=== PATIENT | female | born 1980 | race Caucasian/White ===

== ENCOUNTER → 2019-03-24 08:59 | Outpatient (CLI) | payer OTHER, SELFPAY | PROVIDERS: Family Provider Family Medicine; PCP Family Medicine; Visit Provider Physician Assistant | DX: J02.9 Acute pharyngitis, unspecified (principal) | CPT/HCPCS: 87070; 87077; 87147 ==

== ENCOUNTER → 2020-01-08 16:04 | Outpatient (CLI) | payer OTHER, SELFPAY ==
--- NOTE | 2020-01-08 | DI.MG.S_ITS ---
BILATERAL DIGITAL SCREENING MAMMOGRAM 3D/2D WITH CAD: 01/08/2020 CLINICAL: Routine screening. Baseline exam. Family history of breast cancer. No prior exams were available for comparison. The tissue of both breasts is extremely dense, which lowers the sensitivity of mammography. Current study was also evaluated with a Computer Aided Detection (CAD) system. No significant masses, calcifications, or other findings are seen in either breast. IMPRESSION: NEGATIVE There is no mammographic evidence of malignancy. A 1 year screening mammogram is recommended. This exam was interpreted at Station ID: [id number]. NOTE: For mammograms, a report in lay terms will be sent to the patient. Approximately 15% of breast malignancies will not be visualized mammographically. In the management of a palpable breast mass, a negative mammogram must not discourage biopsy of a clinically suspicious lesion. Electronically Signed By: Marina lucia/dena:01/08/2020 16:48:29 letter sent: Normal Exam ACR BI-RADS Category 1: Negative 3341F
== END ==
PROVIDERS: Family Provider Family Medicine; PCP Family Medicine; Referring Provider Registered Nurse; Visit Provider Registered Nurse
DX: Z12.31 Encounter for screening mammogram for malignant neoplasm of breast (principal); Z80.3 Family history of malignant neoplasm of breast
CPT/HCPCS: 77063; 77067

== ENCOUNTER → 2020-03-02 16:46 | Outpatient (CLI) | payer OTHER, SELFPAY ==
--- NOTE | 2020-03-02 16:54 | DI.RAD.S_ITS ---
PROCEDURE: XR SHOULDER RT MIN 2V INDICATIONS: NECK AND RIGHT SHOULDER PAIN TECHNIQUE: 3 views of the shoulder were acquired. COMPARISON: [facility], CR, XR CERVICAL SPINE 2V OR 3V, 03/02/2020, 16:48. FINDINGS: Bones: No fractures. No dislocations. The right acromioclavicular joint is widened and mildly displaced at 9 mm. No suspicious bony lesions. Visualized ribs appear intact. Soft tissues: No suspicious soft tissue calcifications. The visualized lung demonstrates an unremarkable appearance. IMPRESSION: Right acromioclavicular joint separation. If clinically appropriate, please consider a follow-up study performed of both shoulders, with and without weights. Dictated by: Maximo Maya M.D. on 03/02/2020 at 16:43 Approved by: Maximo Maya M.D. on 03/02/2020 at 16:44
--- NOTE | 2020-03-02 16:54 | DI.RAD.S_ITS ---
PROCEDURE: XR CERVICAL SPINE 2V OR 3V INDICATIONS: NECK AND RIGHT SHOULDER PAIN TECHNIQUE: 3 view(s) of the cervical spine were acquired. COMPARISON: [facility], CR, XR SHOULDER RT MIN 2V, 03/02/2020, 16:48. FINDINGS: Bones: No fractures or dislocations to the T1 level. The lateral masses of C1 appear intact on the odontoid view. No suspicious bony lesions. There is straightening of the normal cervical lordosis. The disc spaces are relatively well preserved. Soft tissues: No prevertebral soft tissue swelling. The visualized lung apices are unremarkable. IMPRESSION: Straightening of the normal cervical lordosis is seen, which is commonly observed in patients with muscular spasm. Dictated by: Maximo Maya M.D. on 03/02/2020 at 16:44 Approved by: Maximo Maya M.D. on 03/02/2020 at 16:45
== END ==
PROVIDERS: Family Provider Family Medicine; PCP Family Medicine
DX: M54.2 Cervicalgia (principal); M25.511 Pain in right shoulder; S43.101A Unspecified dislocation of right acromioclavicular joint, initial encounter; M99.07 Segmental and somatic dysfunction of upper extremity; M99.01 Segmental and somatic dysfunction of cervical region; M79.18 Myalgia, other site; S46.011A Strain of muscle(s) and tendon(s) of the rotator cuff of right shoulder, initial encounter
CPT/HCPCS: 72040; 73030

== ENCOUNTER → 2021-01-12 12:39 | Outpatient (CLI) | payer OTHER, SELFPAY ==
--- NOTE | 2021-01-12 12:42 | DI.MG.S_ITS ---
BILATERAL DIGITAL DIAGNOSTIC MAMMOGRAM 3D/2D: 01/12/2021 CLINICAL: Breast lump. Comparison is made to exam dated: 01/08/2020 [facility]. The tissue of both breasts is extremely dense, which lowers the sensitivity of mammography. There is a new 8 mm irregular low density asymmetry with a circumscribed margin in the right breast posterior depth lateral region seen on the exaggerated craniocaudal view only. This is seen in tomographic views. This correlates as palpated. No other significant masses, calcifications, or other findings are seen in either breast. IMPRESSION: INCOMPLETE: NEEDS ADDITIONAL IMAGING EVALUATION The new palpable 8 mm irregular low density asymmetry in the right breast most likely is a cyst or a lymph node and is indeterminate. An ultrasound is recommended. This was performed immediately following this exam. This exam was interpreted at Station ID: [id number]. NOTE: For mammograms, a report in lay terms will be sent to the patient. Approximately 15% of breast malignancies will not be visualized mammographically. In the management of a palpable breast mass, a negative mammogram must not discourage biopsy of a clinically suspicious lesion. Electronically Signed By: Amberly walker/:01/12/2021 13:35:17 ACR BI-RADS Category 0: Incomplete 3340F
--- NOTE | 2021-01-12 12:42 | DI.US.S_ITS ---
LIMITED ULTRASOUND OF RIGHT BREAST: 01/12/2021 CLINICAL: Palpable right breast lump. Comparison is made to exams dated: 01/12/2021 mammogram and 01/08/2020 mammogram - [facility]. Color flow and real-time ultrasound of the right breast 10 o'clock region were performed. Al scale images of the real-time examination were reviewed. There is a benign oval lymph node with a circumscribed margin in the right axillary tail. This oval lymph node displays fatty hilum and no posterior acoustic shadowing or enhancement. This correlates as palpated and with mammography findings. Color flow imaging demonstrates that there is expected hilar vascularity present. IMPRESSION: BENIGN There is no sonographic evidence of malignancy. The palpable finding is consistent with a normal intramammary lymph node and is benign. Return to annual mammogram screening schedule is recommended. Findings and recommendations were conveyed to the patient at time of exam. This exam was interpreted at Station ID: [id number]. Electronically Signed By: Amberly walker/:01/12/2021 13:54:11 letter sent: Normal Exam Ultrasound BI-RADS: 2 Benign
== END ==
PROVIDERS: Family Provider Family Medicine; PCP Physician Assistant Medical; Referring Provider Registered Nurse; Visit Provider Physician Assistant Medical
DX: R92.8 Other abnormal and inconclusive findings on diagnostic imaging of breast; N63.10 Unspecified lump in the right breast, unspecified quadrant
CPT/HCPCS: 76642; 77066; G0279

== ENCOUNTER → 2021-06-08 15:57 | Outpatient (CLI) | payer OTHER, SELFPAY ==
--- NOTE | 2021-06-08 15:59 | DI.MRI.S_ITS ---
PROCEDURE: MR BRAIN (PITUITARY) WWO CON INDICATIONS: Other disorders of pituitary gland TECHNIQUE: Noncontrast sagittal and axial FLAIR, axial gradient echo, axial diffusion and ADC through the brain. Thin-slice sagittal and coronal T1 spin echo, coronal T2 fast spin echo through the pituitary. After the administration contrast, optional dynamic coronal T1 spin echo, thin-slice coronal and sagittal T1 spin echo images through the pituitary fossa; axial T1 spin echo with fat saturation through the brain. In this patient, additional thin section postcontrast T1 weighted fat saturated images were obtained through the orbits as well as precontrast thin-section coronal T2 weighted images through the orbits. COMPARISON: [facility], MR, BRAIN W&WO CONTRAST, 01/23/2016, 16:34. [facility], CT, CT ENT SINUS WITHOUT CONTRAST, 05/08/2021, 9:51. FINDINGS: Image quality: Excellent. Pituitary Gland: Within the left inferior aspect of the pituitary, there is a faintly seen area of decreased enhancement that measures 6 x 4 x 5 mm, as on series 18, image 4. The pituitary gland demonstrates normal overall signal and bulk. The pituitary stalk and infundibulum have an unremarkable appearance. A normal appearing pituitary bright spot is seen posteriorly on the precontrast sagittal T1-weighted images. The optic chiasm and the ventral forebrain have an unremarkable appearance. CSF Spaces: Ventricles are normal in size and shape. Basal cisterns are patent. No extra-axial fluid collections. Brain: No intracranial bleeds or mass effects. No abnormal intracranial enhancement. Al-white matter interface is intact. Diffusion weighted images demonstrate no acute ischemic insults. Brainstem is normal. Normal intravascular flow voids are present. Skull and face: Calvarial marrow is normal in signal. Scrutiny is given to the orbits. The globes demonstrate a normal, symmetric appearance. No orbital masses are seen. No abnormal enhancement can be seen. The lacrimal glands demonstrate a normal, symmetric appearance. The extraocular muscles demonstrate a normal, symmetric appearance. Sinuses: Mild mucosal thickening is seen within the left maxillary sinus. Sinuses and mastoids are otherwise clear. IMPRESSION: Within the left pituitary, there is a faintly seen 6 mm poorly enhancing nodule, which may represent a microadenoma. Normal appearing orbits. Dictated by: Maximo Maya M.D. on 06/08/2021 at 16:43 Approved by: Maximo Maya M.D. on 06/08/2021 at 16:47
== END ==
PROVIDERS: Family Provider Family Medicine; PCP Physician Assistant Medical; Referring Provider Physician Assistant Medical; Visit Provider Physician Assistant Medical
DX: E23.6 Other disorders of pituitary gland (principal)
CPT/HCPCS: 70553; A9579

== ENCOUNTER → 2021-06-15 08:55 | Outpatient (CLI) | payer OTHER, SELFPAY ==
--- NOTE | 2021-06-15 | DI.MRI.S_ITS ---
PROCEDURE: MR CERVICAL SPINE WO CON INDICATIONS: Radiculopathy, cervical region TECHNIQUE: Noncontrast sagittal T1 spin echo and T2 fast spin echo, sagittal STIR, foraminal oblique sagittal T2 fast spin echo, and axial gradient echo or T2 fast spin echo through the cervical spine. COMPARISON: [facility], CR, XR CERVICAL SPINE 2V OR 3V, 03/02/2020, 16:48. FINDINGS: Image quality: Excellent. Alignment and Curvature: There is normal bony alignment. Bone Marrow: Marrow demonstrates normal overall signal. Spinal Cord: Visualized spinal cord has normal size and signal. No cerebellar tonsillar herniation. Paraspinous Soft Tissues: No paravertebral masses. Prevertebral soft tissues are normal in thickness. C2-C3: Normal appearance. C3-C4: Slight loss of disc signal. No central stenosis. No neural foraminal narrowing. No neural compression. C4-C5: Slight loss of disc signal. No central stenosis. No neural foraminal narrowing. No neural compression. C5-C6: Loss of disc signal. Mild, diffuse disc bulge. Central/right central disc protrusion superimposed upon diffuse disc bulge. Moderate narrowing of the central canal. Moderate right and mild left uncovertebral joint hypertrophy. Severe right and mild left neural foraminal narrowing with compression of the exiting right C6 nerve root. C6-C7: Loss of disc signal. Mild, diffuse disc bulge. Moderate-sized left central disc protrusion. Moderate narrowing of the central canal. Disc protrusion abuts and slightly flattens the anterior left aspect of the cervical spinal cord. No neural foraminal narrowing. C7-T1: Normal appearance. IMPRESSION: 1. Mild multilevel degenerative disc disease. 2. Moderate right and mild left C5-C6 uncovertebral joint hypertrophy. 3. Moderate C5-C6 and C6-C7 central canal narrowing. 4. Severe right and mild left C5-C6 neural foraminal narrowing with compression of the exiting right C6 nerve root. 5. Moderate-sized left central C6-C7 disc protrusion which abuts and slightly flattens the anterior left aspect of the spinal cord. Dictated by: Cecilia Umana MD, PhD on 06/15/2021 at 9:46 Approved by: Cecilia Umana MD, PhD on 06/15/2021 at 9:50
== END ==
PROVIDERS: Family Provider Family Medicine; PCP Physician Assistant Medical; Referring Provider Physical Medicine & Rehabilitation; Visit Provider Physical Medicine & Rehabilitation
DX: M50.122 Cervical disc disorder at C5-C6 level with radiculopathy (principal); M50.223 Other cervical disc displacement at C6-C7 level; M48.02 Spinal stenosis, cervical region
CPT/HCPCS: 72141

== ENCOUNTER → 2022-05-04 13:32 | Outpatient (CLI) | payer OTHER, SELFPAY ==
--- NOTE | 2022-05-04 | DI.US.S_ITS ---
LIMITED ULTRASOUND OF LEFT BREAST AND AXILLA: 05/04/2022 CLINICAL: Palpable left breast lump. Comparison is made to exams dated: 05/04/2022 mammogram, 01/12/2021 mammogram, and 01/08/2020 mammogram - [facility]. Color flow ultrasound of the left breast axilla was performed on the areas of interest. Al scale images of the real-time examination were reviewed. IMPRESSION: NEGATIVE There is no sonographic evidence of malignancy. There are no mammographic or sonographic abnormalities seen in the left breast to correspond with the palpable nodularities, however, clinical followup is recommended. A 1 year screening mammogram is recommended. This exam was interpreted at Station ID: [id number]. Electronically Signed By: Marina Tabor M.D. lk/:05/04/2022 14:45:28 letter sent: Clinical Evaluation Ultrasound BI-RADS: 1 Negative
--- NOTE | 2022-05-04 | DI.MG.S_ITS ---
BILATERAL DIGITAL DIAGNOSTIC MAMMOGRAM 3D/2D: 05/04/2022 CLINICAL: Left Breast lump. Comparison is made to exams dated: 01/12/2021 mammogram and 01/08/2020 mammogram - [facility]. Both breasts are extremely dense, which lowers the sensitivity of mammography (category d />75% glandular tissue). No significant masses, calcifications, or other findings are seen in either breast. IMPRESSION: INCOMPLETE: NEEDS ADDITIONAL IMAGING EVALUATION There are no mammographic abnormalities seen in the left breast to correspond with the palpable nodularities, however, targeted ultrasound of the left breast is recommended and will be performed immediately following this exam. Follow-up with ACR/ACS guidelines. Based on Tyrer-Cuzick model (a risk assessment model), the patient's lifetime risk is 20.6% and her 10 year risk is 3.2%. If a patient has an elevated risk, a more comprehensive evaluation should be considered and/or a referral to a genetic counselor. The [place] [employer], [employer], and NCCN Guidelines advise the consideration of Breast MRI as an adjunct to screening mammography in patients whose Lifetime risk to develop breast cancer is 20% or higher. This exam was interpreted at Station ID: [id number]. NOTE: For mammograms, a report in lay terms will be sent to the patient. Approximately 15% of breast malignancies will not be visualized mammographically. In the management of a palpable breast mass, a negative mammogram must not discourage biopsy of a clinically suspicious lesion. Electronically Signed By: Marina Tabor M.D. lk/:05/04/2022 14:18:41 ACR BI-RADS Category 0: Incomplete [id number]
== END ==
PROVIDERS: Family Provider Family Medicine; PCP Family Medicine; Referring Provider Family Medicine; Visit Provider Family Medicine
DX: N63.20 Unspecified lump in the left breast, unspecified quadrant (principal); R92.2 Inconclusive mammogram
CPT/HCPCS: 76642; 77066; G0279